=== PATIENT | female | born 1995 | race Caucasian/White ===

== ENCOUNTER 2022-11-11 13:55 | Emergency (ER) | payer OTHER, SELFPAY ==
[2022-11-11 13:59] VITALS: BP 140/86; PULSE 94; RESP 16; TEMP 37.1; O2SAT 97
--- NOTE | 2022-11-11 14:30 | DI.RAD_ITS ---
Exam(s) XR ANKLE LT COMPLETE EXAM: XR ANKLE LT COMPLETE CLINICAL HISTORY: twist injury TECHNIQUE: 2D digital imaging was performed. Three views. COMPARISON: No exams were available for comparison FINDINGS: BONES: No acute fracture is present. No bony destructive lesion is seen. JOINTS:The ankle mortise is normally aligned. SOFT TISSUE: Normal. IMPRESSION: Unremarkable radiographs of the left ankle. DATA REPOSITORY: RADIATION DOSE DELIVERED:
[2022-11-11 16:33] VITALS: BP 134/81; PULSE 90; RESP 16; TEMP 37.1; O2SAT 97
--- NOTE | 2022-11-12 16:48 | ED.GENADUL_ITS ---
Discharge Plan Disposition Patient Disposition: Home Condition: Stable Discharge Details Clinical Impression: Strain of ankle and foot Primary Care Provider: Milagro Harkins ED Provider: Michelle De Dios Home Meds and New Rx's Prescriptions: Continued esomeprazole magnesium 20 mg Capsule,Delayed Release(Dr/Ec) 20 mg PO DAILY bupropion HCl 300 mg Tablet Extended Release 24 Hr 300 mg PO QAM Discharge Instructions Additional Instructions: Ibuprofen and Tylenol as needed for pain Wear boot as needed for discomfort and for support for the next several days Weightbearing as tolerated Please be reevaluated in 1 week with persistent pain Referrals: Milagro Harkins [Primary Care Provider] - Discharge Data Discharge Date/Time-TO BE ENTERED AT DEPARTURE: 11/11/22 16:38 Medical Decision Making Patient presents with left ankle pain after injury X-ray was ordered secondary to complaint and clinical exam X-ray per radiology interpretation my review does not show evidence of acute abnormality Placed in a boot and crutches for comfort Repeat x-ray in 1 week with persistent pain recommended Return precautions discussed and patient expressed understanding HPI General Date/Time Provider Initiated Documentation: 11/11/22 14:44 . HPI Narrative: This 27-year-old female presents with left ankle pain after twisting fall. Denies any additional injuries she reportedly tripped on the sidewalk. Denies chance of . Denies strength or sensation change. Related Data Home Medications Medication Instructions Recorded Confirmed bupropion HCl 300 mg 24 hr tablet, 300 mg PO QAM 11/11/22 11/11/22 extended release esomeprazole magnesium 20 mg 20 mg PO DAILY 11/11/22 11/11/22 capsule,delayed release Allergies Allergy/AdvReac Type Severity Reaction Status Date / Time No Known Drug Allergies Allergy Unverified 11/11/22 14:08 General Stated Complaint: Orthopedic KAVEH: 4 PFSH All Active Problems (Updated 11/11/22 @ 16:24 by AMANDA Roberts) Strain of ankle and foot (Acute) Social History Smoking/Tobacco Use Status: Never Smoking risk assessment performed?: Yes Alcohol Intake: current Alcohol Intake frequency: holidays/special occasions only Drug use: Never Substance use type: does not use Do you feel safe at home: Yes Do you feel safe in your relationship?: Yes Exam Narrative Exam Narrative: Left lateral malleolus with tenderness and swelling, neurovascularly intact, no tenderness to knee Course Vital Signs Vital signs: Vital Signs Temperature 37.1 C 11/11/22 13:59 Pulse 94 H 11/11/22 13:59 Respiratory Rate 16 11/11/22 13:59 Blood Pressure 140/86 11/11/22 13:59 Pulse Oximetry 97 11/11/22 13:59 Temperature 37.1 C 11/11/22 16:33 Temperature Source Tympanic 11/11/22 13:59 Pulse 90 11/11/22 16:33 Respiratory Rate 16 11/11/22 16:33 Respiratory Effort Normal 11/11/22 14:05 Blood Pressure 134/81 11/11/22 16:33 Blood Pressure Position Sitting 11/11/22 13:59 Pulse Oximetry 97 11/11/22 16:33 Oxygen Delivery Method Room Air 11/11/22 13:59 Oxygen Flow Rate 0 11/11/22 13:59 Pain Level 6 11/11/22 13:59
--- NOTE | 2022-11-16 09:28 | NUR.NOTE ---
Nursing Note: Work note faxed to [employer] @ [phone]. Note was handwritten and sent to medical records for scanning.
== END 2022-11-11 16:38 | disposition home or self-care (01) ==
PROVIDERS: Emergency Provider Physician Assistant; PCP Family Medicine
DX: S96.912A Strain of unspecified muscle and tendon at ankle and foot level, left foot, initial encounter (principal); W01.0XXA Fall on same level from slipping, tripping and stumbling without subsequent striking against object, initial encounter; X50.1XXA Overexertion from prolonged static or awkward postures, initial encounter; Y92.480 Sidewalk as the place of occurrence of the external cause
CPT/HCPCS: 99283; 73610; 99282